=== PATIENT | female | born 1995 | race Hispanic/Latino ===

== ENCOUNTER 2024-05-11 00:13 | Emergency (ER) | payer BC ==
[~2024-05-11] VITALS: Ht 167.6 cm; Wt 86.2 kg
[2024-05-11 01:00] LABS: APPEARANCE,URINE CLEAR (CLEAR); BILIRUBIN,URINE NEGATIVE (NEGATIVE); GLUCOSE, URINE (UA) NEGATIVE (NEGATIVE); KETONES,URINE NEGATIVE (NEGATIVE); LEUKOCYTE ESTERASE ,URINE NEGATIVE Leu/uL (NEGATIVE); NITRATE,URINE NEGATIVE (NEGATIVE); OCCULT BLOOD,URINE LARGE (NEGATIVE); PROTEIN,URINE NEGATIVE (NEGATIVE); UROBILINOGEN,URINE 0.2 mg/dL (0.2-1.0)
[2024-05-11 01:01] LABS: ADD UA MICROSCOPIC YES; COLOR,URINE Light-Yellow (YELLOW)
[2024-05-11 01:04] LABS: HCG,QUALITATIVE URINE NEGATIVE (NEGATIVE)
[2024-05-11 01:05] LABS: MUCUS,URINE RARE LPF (None Seen); RBC,URINE 0-1 /HPF (0-1); SQUAMOUS EPITHELIAL CELL,UR RARE /HPF (0-2); WBC,URINE 0-1 /HPF (0-1)
[2024-05-11 01:08] LABS: BASOPHILS # (AUTO) 0.04 K/uL (0.00-0.20); BASOPHILS % (AUTO) 0.4 % (0.0-5.0); EOSINOPHILS # (AUTO) 0.11 K/uL (0.00-0.70); EOSINOPHILS % (AUTO) 1.1 % (0.0-8.0); HEMATOCRIT 39.6 % (36-48); IMMATURE GRANULOCYTE ABSOLUTE 0.03 K/uL (0-1); LYMPHOCYTES # (AUTO) 3.9 K/uL (1.0-4.8); LYMPHOCYTES % (AUTO) 39.8 % (21.0-51.0); MEAN CORPUSCULAR HEMOGLOBIN 29.5 pg (27.0-33.0); MEAN CORPUSCULAR HGB CONC 34.3 g/dL (32.0-36.0); MEAN CORPUSCULAR VOLUME 85.9 fL (79-99); MONOCYTES # (AUTO) 0.7 K/uL (0.1-1.0); MONOCYTES % (AUTO) 6.9 % (3.0-13.0); NEUTROPHILS % (AUTO) 51.5 % (40.0-77.0); PLATELET COUNT (AUTO) 280 K/uL (130-400); RED BLOOD CELL COUNT(AUTO) 4.61 MIL/uL (4.00-5.50); RED CELL DISTRIBUTION WIDTH 12.5 % (11.0-15.5); WHITE BLOOD COUNT (AUTO) 9.7 K/uL (4.8-10.8)
[2024-05-11 01:15] LABS: CREATININE 0.8 mg/dL (0.5-1.0); POTASSIUM 3.6 mmol/L (3.5-5.1)
[2024-05-11 01:20] LABS: BILIRUBIN,TOTAL 0.2 mg/dL (0.2-1.0); TOTAL PROTEIN, SERUM 8.4 g/dL (6.0-8.3)
[2024-05-11 02:09] LABS: AMPHET/METH SCREEN,URINE NEGATIVE (NEGATIVE); BARBITURATE SCREEN, URINE NEGATIVE (NEGATIVE); BENZODIAZEPINES SCREEN,URINE NEGATIVE (NEGATIVE); CANNABINOID SCREEN,URINE NEGATIVE (NEGATIVE); COCAINE SCREEN,URINE NEGATIVE (NEGATIVE); OPIATE SCREEN,URINE NEGATIVE (NEGATIVE); PHENCYCLIDINE SCREEN,URINE NEGATIVE (NEGATIVE)
[2024-05-11] MEDS: METOPROLOL TARTRATE 25 MG TAB PO ONE (02:45)
[2024-05-11 06:12] VITALS: BP 110/72; PULSE 70; RESP 14; O2SAT 100
== END 2024-05-11 06:55 | disposition home or self-care (01) ==
LOC: EDH 00:13
DX: R00.2 Palpitations (principal)
CPT/HCPCS: 36415; 80053; 80305; 81001; 81025; 85025; 93005

== ENCOUNTER → 2025-07-01 | Outpatient (CLI) | payer BC | END | disposition home or self-care (01) | LOC: LAB 12:07 | PROVIDERS: ATTEND Obstetrics & Gynecology Reproductive Endocrinology | DX: Z32.02 Encounter for pregnancy test, result negative (principal) | CPT/HCPCS: 36415; 84702 ==

== ENCOUNTER 2025-08-29 16:43 | Emergency (ER) | payer BC, MEDICAID ==
[~2025-08-29] VITALS: Ht 167.6 cm; Wt 93.4 kg
[2025-08-29 17:05] LABS: APPEARANCE,URINE CLEAR (CLEAR); GLUCOSE, URINE (UA) NEGATIVE (NEGATIVE); LEUKOCYTE ESTERASE ,URINE NEGATIVE Leu/uL (NEGATIVE); NITRATE,URINE NEGATIVE (NEGATIVE); OCCULT BLOOD,URINE NEGATIVE (NEGATIVE)
[2025-08-29 17:08] LABS: ADD UA MICROSCOPIC NO
--- NOTE | 2025-08-29 17:16 | ERN ---
ED Note History of Present Illness Stated Complaint: PELVIC PAIN, 13 WEEKS Chief Complaint: Abdominal Pain in Time Seen by MD: 17:08 Time Seen by Midlevel: 17:08 Dictation: The patient is a 30-year-old female with a history of cholecystectomy who is 13 weeks who presents to the emergency department with complaints of suprapubic abdominal pain onset today. Patient denies any vaginal bleeding or discharge, denies any nausea or vomiting. She is . Patient of Dr. Markie Valentin Allergies: Coded Allergies: No Known Drug Allergies (Unverified Allergy, Unknown, 08/29/25) Past Medical History Past Medical History: No Pertinent History Surgical History: Cholecystectomy Family History: Negative Social History: Negative History: Not Applicable : 2 Para: 1 Review of System Dictation Constitutional: Negative for fever,chills, and weight loss Eyes: Negative for injury, pain,redness, and discharge ENT: Negative for injury,pain or swelling Cardiovascular: Negative for chest pain, palpitations, and edema Respiratory: Negative for shortness of breath, cough, and wheezing, Abdomen/GI: Negative for nausea, vomiting, diarrhea, and constipation positive for suprapubic pain Back: Negative for injury and pain : Negative for injury, bleeding and discharge MS/Extremity: Negative for injury and deformity Skin: Negative for rash, and discoloration Neuro: Negative for headache, weakness, numbness, tingling, and seizure Psych: Negative for suicide ideation, homicidal ideation, and hallucinations Initial Vital Sign VS Vital Signs Date Time Temp Pulse Resp B/P (MAP) Pulse Ox O2 Delivery O2 Flow Rate FiO2 08/29/25 16:45 98.1 83 16 110/70 98 Room Air 0 08/29/25 17:05 21 Physical Exam Dictation Vital Signs reviewed General Appearance: Alert, oriented x 3, no acute distress, well developed, nourished. Head and Face: non-traumatic. Eyes: PERRL, pink conjunctivas, eyelid no trauma, anterior chamber with arcus senilis. Ears: Pinnas intact and no signs of trauma or erythema ear canals clear and no discharge TM no erythema Nose: No discharge, no bleeding. Oropharynx: Mouth normal, tongue pink. pharynx clear,no erythema, tonsils no exudates, no abscesses noted, mucous membrane moist Neck: Supple, non-tender, no thyromegaly, no masses, no JVD, no bruits Breast:Deferred Chest:No tenderness, no crepitus, no paradoxical movement, no retractions Lungs:Clear, well-ventilated, symmetric, no rales, no wheezing, no rhonchi, no stridor, good breath sounds bilaterally Heart: Regular rate, regular rhythm, no murmur, no gallops Vascular: no peripheral edema, Abdomen: Soft, positive bowel sounds, nondistended, no guarding, nontender, no rebound, no masses no hepatomegaly, no splenomegaly, no Sánchez's sign, no hernias. Rectal: Deferred Genital: Deferred Neurological: Normal speech, motor function intact, sensory function intact Musculoskeletal: Neck nontender, full range of motion, back nontender, full range of motion, Extremities: nontender, full range of motion Skin: Color pink, dry, no turgor, no rash, no lacerations, no abrasions, no contusions. Lymphatic: Deferred Results (Laboratory/Radiology) Laboratory/Radiology Laboratory Tests Test 08/29/25 17:00 08/29/25 17:21 Urine Color COLORLESS (YELLOW) Urine Appearance CLEAR (CLEAR) Urine pH 7.0 (5.0-8.0) Urine Specific [place] 1.004 (1.001-1.031) Urine Protein NEGATIVE mg/dL (NEGATIVE) Urine Glucose (UA) NEGATIVE mg/dL (NEGATIVE) Urine Ketones NEGATIVE mg/dL (NEGATIVE) Urine Occult Blood NEGATIVE (NEGATIVE) Urine Nitrate NEGATIVE (NEGATIVE) Urine Bilirubin NEGATIVE mg/dL (NEGATIVE) Urine Urobilinogen 0.2 mg/dL (0.2-1.0) Urine Leukocyte Esterase NEGATIVE Black/uL White Blood Count 10.3 K/uL (4.8-10.8) Red Blood Count 3.93 MIL/uL (4.00-5.50) L Hemoglobin 11.8 g/dL (12.0-16.0) L Hematocrit 34.4 % (36-48) L Mean Corpuscular Volume 87.5 fL (79-99) Mean Corpuscular Hemoglobin 30.0 pg (27.0-33.0) Mean Corpuscular Hemoglobin Concent 34.3 g/dL (32.0-36.0) Red Cell Distribution Width 12.6 % (11.0-15.5) Platelet Count 230 K/uL (130-400) Mean Platelet Volume 10.4 fL (7.5-10.5) Immature Granulocyte % (Auto) 0.3 % (0-1) Neutrophils (%) (Auto) 63.9 % (40.0-77.0) Lymphocytes (%) (Auto) 27.9 % (21.0-51.0) Monocytes (%) (Auto) 6.6 % (3.0-13.0) Eosinophils (%) (Auto) 1.0 % (0.0-8.0) Basophils (%) (Auto) 0.3 % (0.0-5.0) Neutrophils # (Auto) 6.6 K/uL (1.8-7.7) Lymphocytes # (Auto) 2.9 K/uL (1.0-4.8) Monocytes # (Auto) 0.7 K/uL (0.1-1.0) Eosinophils # (Auto) 0.10 K/uL (0.00-0.70) Basophils # (Auto) 0.03 K/uL (0.00-0.20) Absolute Immature Granulocyte (auto 0.03 K/uL (0-1) Nucleated Red Blood Cells 0.0 % (0.0-0.19) Sodium Level 137 mmol/L (136-145) Potassium Level 3.6 mmol/L (3.5-5.1) Chloride Level 104 mmol/L (101-111) Carbon Dioxide Level 25 mmol/L (21-32) Blood Urea Nitrogen 9 mg/dL (7-18) Creatinine 0.5 mg/dL (0.5-1.0) Glomerular Filtration Rate Calc 129 mL/min (>90) Random Glucose 89 mg/dL (70-105) Total Calcium 8.5 mg/dL (8.5-10.1) Human Chorionic Gonadotropin, Quant [id number] mIU/mL (0-5) H REASON: pelvic pain ORDERING PHYSICIAN: SHEELA HOOD PROCEDURE: OB <14 - US OB <14 WEEKS EXAMINATION: OB ULTRASOUND LESS THAN 14 WEEKS. CLINICAL HISTORY: Amenorrhea. Pelvic pain. COMPARISON: None. TECHNIQUE: Grayscale and color ultrasound images were obtained utilizing transabdominal transducer. FINDINGS: SNEHA: 03/07/2026, 12 weeks and 6 days. The uterus measures 13.8 x 8.7 x 9.0 cm. There is a single, live intrauterine with an approximate gestational age of 12 weeks and 2 days as per the crown-rump length which measures 5.8 cm and a regular heart rate of 158 bpm. There is no evidence of subchorionic hemorrhage. The cervix is not well visualized. EDC (by measurement): 03/11/2026. Both the ovaries are obscured by overlying bowel gas. There is no free fluid within the pelvis. Amniotic fluid is normal for the period of gestation with the largest pocket measuring 1.7 cm. The amniotic fluid index is: 5.2 cm IMPRESSION: Live intrauterine with an approximate gestational age of 12 weeks and 2 days, and a regular heart rate of 158 bpm. /[place] [facility] Reviewed?: Yes ED Course ED Course Orders Procedure Category Date Status Time Urinalysis Profile LAB 08/29/25 Complete 16:56 Cbc With Differential LAB 08/29/25 Complete 17:12 Hcg,Quantitative LAB 08/29/25 Complete 17:12 Basic Metabolic Panel LAB 08/29/25 Complete 17:12 Us Ob <14 Weeks US 08/29/25 Resulted 17:12 Acetaminophen 500mg PHA 08/29/25 Complete Tab (Tylenol 500mg T 17:30 Current Medications Medications (Trade) Dose Ordered Sig/Alexey Route PRN Reason Start Time Stop Time Status Last Admin Dose Admin Acetaminophen (TYLenol 500MG TAB) 1,000 mg ONCE ONCE PO 08/29/25 17:30 08/29/25 17:31 DC 08/29/25 17:24 Vital Signs Date Time Temp Pulse Resp B/P (MAP) Pulse Ox O2 Delivery O2 Flow Rate FiO2 08/29/25 18:48 98.1 78 16 96/61 99 Room Air* 0 21 08/29/25 17:05 98.1 83 16 110/70 98 Room Air* 0 21 08/29/25 16:45 98.1 83 16 110/70 98 Room Air 0 Medical Decision Making MDM The patient is a 30-year-old female with a history of cholecystectomy who is 13 weeks who presents to the emergency department with complaints of suprapubic abdominal pain onset today. Patient denies any vaginal bleeding or discharge, denies any nausea or vomiting. She is . Patient of Dr. Markie Valentin CBC showed no leukocytosis, mild normocytic anemia, chemistry showed no varun ctrolyte imbalance, normal renal function, hCG level of [id number], urinalysis unremarkable. Ultrasound showed a live intrauterine at approximately 12 weeks and two days with a heartbeat of 158 Patient with no vaginal bleeding. On physical exam patient is in no acute distress, nontoxic appearance, stable vital signs we will be discharged to follow up with OBGYN. Differential diagnosis: UTI, threatened , intrauterine Need for hospitalization: Patient does not meet criteria for hospitalization. There are no social concerns with this patient. DX & DISP Disposition: Discharge Departure Impression: Primary Impression: Abdominal pain in early Additional Impression: 12 weeks gestation of Condition: Stable Additional Instructions: Your labs in your ultrasound were unremarkable. Please follow up with your OBGYN in 1-2 days. If anything worsens please return to ER. FOLLOW-UP WITH PRIMARY CARE PROVIDER IN 1 TO 2 DAYS. TAKE MEDICATIONS DIRECTED HERE IN THE EMERGENCY ROOM. OKAY TO CONTINUE HOME MEDICATIONS UNLESS OTHERWISE DISCUSSED DURING YOUR VISIT IN THE EMERGENCY ROOM TODAY. RETURN TO YOUR NEAREST EMERGENCY ROOM IF SYMPTOMS WORSEN OR IF THERE IS NO IMPROVEMENT. CALL 911 IF YOU NEED IMMEDIATE ASSISTANCE. TAKE TYLENOL [id number] NEEDED AND IF NO CONTRAINDICATIONS ARE PRESENT. INCREASE ORAL HYDRATION. A WOUND CULTURE OR URINE CULTURE WAS ORDERED HERE IN THE EMERGENCY ROOM DEPARTMENT PLEASE FOLLOW-UP WITH PRIMARY CARE PROVIDER AND ADVISE THEM TO GET REPEAT PORTS FROM OUR FACILITY. IF YOU HAD ANY JERICA WRAP/SPLINTS THAT WERE APPLIED HERE, PLEASE DO NOT REMOVE THEM UNTIL YOU SEE YOUR PRIMARY CARE OR SPECIALTY. Referrals: SELF,REFERRAL (PCP) Time of Disposition: 19:14 I have reviewed the case, and I agree with, Diagnosis and Plan SHEELA HOOD Aug 29, 2025 17:15
[2025-08-29 17:28] LABS: IMMATURE GRANULOCYTE ABSOLUTE 0.03 K/uL (0-1); NUCLEATED RED BLOOD CELLS 0.0 % (0.0-0.19); PLATELET COUNT (AUTO) 230 K/uL (130-400); RED BLOOD CELL COUNT(AUTO) 3.93 MIL/uL (4.00-5.50); RED CELL DISTRIBUTION WIDTH 12.6 % (11.0-15.5); WHITE BLOOD COUNT (AUTO) 10.3 K/uL (4.8-10.8)
[2025-08-29 17:36] LABS: CREATININE 0.5 mg/dL (0.5-1.0); GLOMERULAR FILTR. RATE CALC 129.0 mL/min (>90); GLUCOSE,RANDOM 89.0 mg/dL (70-105); SODIUM SERUM 137.0 mmol/L (136-145); UREA NITROGEN, BLOOD 9.0 mg/dL (7-18)
[2025-08-29 18:48] VITALS: BP 96/61; PULSE 78; RESP 16; TEMP 98.1; O2SAT 99
--- NOTE | 2025-08-29 18:58 | HMCIMG ---
EXAMINATION: OB ULTRASOUND LESS THAN 14 WEEKS. CLINICAL HISTORY: Amenorrhea. Pelvic pain. COMPARISON: None. TECHNIQUE: Grayscale and color ultrasound images were obtained utilizing transabdominal transducer. FINDINGS: SNEHA: 03/07/2026, 12 weeks and 6 days. The uterus measures 13.8 x 8.7 x 9.0 cm. There is a single, live intrauterine with an approximate gestational age of 12 weeks and 2 days as per the crown-rump length which measures 5.8 cm and a regular heart rate of 158 bpm. There is no evidence of subchorionic hemorrhage. The cervix is not well visualized. EDC (by measurement): 03/11/2026. Both the ovaries are obscured by overlying bowel gas. There is no free fluid within the pelvis. Amniotic fluid is normal for the period of gestation with the largest pocket measuring 1.7 cm. The amniotic fluid index is: 5.2 cm IMPRESSION: Live intrauterine with an approximate gestational age of 12 weeks and 2 days, and a regular heart rate of 158 bpm. /[place]
== END 2025-08-29 19:25 | disposition home or self-care (01) ==
LOC: EDH 16:43
DX: O26.891 Other specified pregnancy related conditions, first trimester (principal); R10.24 Suprapubic pain; Z3A.13 13 weeks gestation of pregnancy; Z90.49 Acquired absence of other specified parts of digestive tract
CPT/HCPCS: 36415; 76801; 80048; 81003; 84702; 85025; 99284